=== PATIENT | male | born 1985 | race Caucasian/White ===

== ENCOUNTER 2022-05-07 12:56 | Emergency (ER) | payer SELFPAY ==
[~2022-05-07] VITALS: Wt 70.3 kg
[2022-05-07] MEDS ORDERED: NARCAN4 MG MC (14:10)
== END 2022-05-07 14:27 | disposition home or self-care (01) ==
LOC: ED 12:56
DX: T40.601A Poisoning by unspecified narcotics, accidental (unintentional), initial encounter (principal); Y92.009 Unspecified place in unspecified non-institutional (private) residence as the place of occurrence of the external cause; Z87.891 Personal history of nicotine dependence